=== PATIENT | female | born 1990 | race Two or more races ===

== ENCOUNTER → 2016-03-03 | Outpatient (CLI) | payer BC ==
--- NOTE | 2016-03-03 14:14 | US ---
Bilateral Breast Ultrasound March 03, 2016 Indication: Palpable lumps in the lower right breast at the 5 and 8 o'clock positions and painful pal pable lump in the inner left breast. Technique: The right and left breasts were scanned with a high-resolution linear transducer by the sheeba hanley and . Correlation was made with targeted physical exam. Findings: No cyst, mass, or architectural distortion in either breast. No evidence of malignancy. The palpable lumps in the right breast at the 5 and 8 o'clock positions correspond to normal bands of fi broglandular tissue. The palpable lump in the lower inner left breast 7 to 8 o'clock position corresp onds to normal band of parenchyma. The painful area along the inner left breast at the 9 o'clock posi tion adjacent the areola reveals normal tissue. Impression: Normal bilateral breast ultrasound. No mass or lesion suspicious for malignancy. The palp able lumps correspond to normal dense bands of fibroglandular tissue. BI-RADS 1: Negative. Recommendation: Clinical follow up for pain and palpable lumps. The negative results and recommendations were discussed with the patient at time of study completion.
== END ==
LOC: BMCIMAGING 13:00
PROVIDERS: ATTEND Family Medicine
DX: N63 Unspecified lump in breast (principal)